=== PATIENT | female | born 1980 | race Caucasian/White ===

== ENCOUNTER → 2017-02-23 | Outpatient (CLI) | payer BC ==
[~2017-02-23] MED LIST: CIPR500T4 OR; COGENTIN PO; RISP2TAB12 OR; RISPERDAL PO
--- NOTE | 2017-02-23 13:10 | REP ---
Clinical: Hypertension . Comparison: 02/26/2013 . Technique: PA and lateral. Findings: The mediastinum and cardiac silhouette are normal. The lung alexander are clear and without acute consolidation, effusion, or pneumothorax. The skeletal structures are intact and normal. Impression: 1. No acute cardiopulmonary process. Signed by Elkin Lebron MD 02/23/2017 01:01 P
[2017-02-23 13:30] LABS: MEAN CORPUSCULAR HEMOGLOBIN 22.2 pg (27.0-33.0); MEAN CORPUSCULAR VOLUME 73.9 fl (80.0-96.0); RED CELL DISTRIBUTION WIDTH 16.1 % (11.5-14.5); WHITE BLOOD COUNT 5.5 K/mm3 (4.0-10.0)
[2017-02-23 13:58] LABS: VITAMIN B12 LEVEL > 2000 PG/ML (247-911)
[2017-02-23 14:06] LABS: ALBUMIN 3.6 GM/DL (3.2-5.2); ALKALINE PHOSPHATASE 53 U/L (45-117); ALT/SGPT 19 U/L (12-78); ANION GAP 7 MEQ/L (8-16); AST/SGOT 11 U/L (15-37); BILIRUBIN,TOTAL 0.5 MG/DL (0.2-1.0); BLOOD UREA NITROGEN 9 MG/DL (7-18); CALCIUM LEVEL 9.1 MG/DL (8.5-10.1); CARBON DIOXIDE LEVEL 27 MEQ/L (21-32); CHLORIDE LEVEL 105 MEQ/L (98-107); CHOLESTEROL LEVEL 190 MG/DL (<200); CREATININE FOR GFR 0.66 MG/DL (0.55-1.02); GLOMERULAR FILTRATION RATE > 60.0 (>60); GLUCOSE, FASTING 85 MG/DL (70-105); PERCENT SATURATION 6.1 % (13.2-37.4); POTASSIUM SERUM 4.2 MEQ/L (3.5-5.1); SODIUM LEVEL 139 MEQ/L (136-145); TOTAL IRON BINDING CAPACITY 475 UG/DL (250-450); TOTAL PROTEIN 7.6 GM/DL (6.4-8.2); TRIGLYCERIDES LEVEL 101 MG/DL (<150)
--- NOTE | 2017-02-23 14:47 | ECGEPIP ---
Stationary ECG Study [facility] Test Date: 2017-02-23 Pat Name: MICHELLE STARKEY Department: Room: - Gender: F P[place] Gluer: : 1980 Requested By: Latasha Pinto Order Number: [id number] Reading MD: Justo Gillespie Measurements Intervals [place] Rate: 71 P: 53 WV: 155 QRS: 15 QRSD: 97 T: 42 QT: 392 QTc: 426 Interpretive Statements SINUS RHYTHM Normal Electronically Signed On 02-23-2017 14:46:51 EDT by Justo Gillespie
== END ==
LOC: M LAB 12:31
PROVIDERS: ATTEND Family Medicine
DX: R53.83 Other fatigue (principal); I10 Essential (primary) hypertension

== ENCOUNTER → 2018-06-06 | Outpatient (CLI) | payer BC ==
[2018-06-06 12:17] LABS: HEMATOCRIT 40.1 % (36.0-47.0); HEMOGLOBIN 12.9 g/dl (12.0-15.5); MEAN CORPUSCULAR HGB CONC 32.2 g/dl (32.0-36.5); MEAN CORPUSCULAR VOLUME 83.9 fl (80.0-96.0); PLATELET COUNT, AUTOMATED 286 10^3/uL (150-450); RED BLOOD COUNT 4.78 10^6/uL (4.00-5.40); RED CELL DISTRIBUTION WIDTH 15.5 % (11.5-14.5); WHITE BLOOD COUNT 7.7 10^3/uL (4.0-10.0)
[2018-06-06 13:07] LABS: ALBUMIN 3.5 GM/DL (3.2-5.2); ALBUMIN/GLOBULIN RATIO 0.97 (1.00-1.93); ALKALINE PHOSPHATASE 48 U/L (45-117); ALT/SGPT 18 U/L (12-78); ANION GAP 10 MEQ/L (8-16); AST/SGOT 11 U/L (7-37); BILIRUBIN,TOTAL 0.4 MG/DL (0.2-1.0); BLOOD UREA NITROGEN 11 MG/DL (7-18); CALCIUM LEVEL 9.3 MG/DL (8.5-10.1); CARBON DIOXIDE LEVEL 26 MEQ/L (21-32); CHLORIDE LEVEL 105 MEQ/L (98-107); CHOLESTEROL LEVEL 182 MG/DL (<200); CHOLESTEROL RISK RATIO 4.918 (<5); CREATININE FOR GFR 0.58 MG/DL (0.55-1.30); GLOMERULAR FILTRATION RATE > 60.0 (>60); GLUCOSE, FASTING 83 MG/DL (70-100); HDL CHOLESTEROL 37 MG/DL (>40); IRON (FE) 38 UG/DL (50-170); NON-HDL-C 145 MG/DL; PERCENT SATURATION 10.1 % (13.2-45.0); POTASSIUM SERUM 4.5 MEQ/L (3.5-5.1); SODIUM LEVEL 141 MEQ/L (136-145); THYROID STIMULATING HORMONE 0.835 uIU/ML (0.358-3.740); TOTAL IRON BINDING CAPACITY 376 UG/DL (250-450); TOTAL PROTEIN 7.1 GM/DL (6.4-8.2); TRIGLYCERIDES LEVEL 115 MG/DL (<150)
[2018-06-06 13:15] LABS: TOTAL 25(OH) VITAMIN D 35.4 NG/ML (30.0-100.0)
[2018-06-06 16:06] LABS: ESTIMATED AVERAGE GLUCOSE 114 MG/DL (60-110); HEMOGLOBIN A1c 5.6 %
== END ==
LOC: M WUC 10:01
DX: I10 Essential (primary) hypertension (principal)
CPT/HCPCS: 83550

== ENCOUNTER → 2019-03-06 | Outpatient (CLI) | payer BC ==
[2019-03-06 17:19] LABS: ALBUMIN 3.7 GM/DL (3.2-5.2); ALT/SGPT 28 U/L (12-78); BILIRUBIN,TOTAL 0.4 MG/DL (0.2-1.0); BLOOD UREA NITROGEN 8 MG/DL (7-18); CALCIUM LEVEL 9.6 MG/DL (8.5-10.1); CARBON DIOXIDE LEVEL 28 MEQ/L (21-32); CHLORIDE LEVEL 103 MEQ/L (98-107); CHOLESTEROL LEVEL 211 MG/DL (<200); CHOLESTEROL RISK RATIO 5.861 (<5); CREATININE FOR GFR 0.64 MG/DL (0.55-1.30); GLOMERULAR FILTRATION RATE > 60.0 (>60); GLUCOSE, FASTING 90 MG/DL (70-100); HDL CHOLESTEROL 36 MG/DL (>40); LDL CHOLESTEROL 143 MG/DL (<100); NON-HDL-C 175 MG/DL; POTASSIUM SERUM 4.3 MEQ/L (3.5-5.1); SODIUM LEVEL 139 MEQ/L (136-145); TOTAL PROTEIN 7.4 GM/DL (6.4-8.2); TRIGLYCERIDES LEVEL 162 MG/DL (<150)
[2019-03-06 17:20] LABS: TOTAL 25(OH) VITAMIN D 32.6 NG/ML (30.0-100.0)
[2019-03-06 17:24] LABS: HEMOGLOBIN 13.6 g/dl (12.0-15.5); MEAN CORPUSCULAR HEMOGLOBIN 28.8 pg (27.0-33.0); MEAN CORPUSCULAR HGB CONC 32.4 g/dl (32.0-36.5); MEAN CORPUSCULAR VOLUME 88.8 fl (80.0-96.0); PLATELET COUNT, AUTOMATED 264 10^3/uL (150-450); RED BLOOD COUNT 4.73 10^6/uL (4.00-5.40); WHITE BLOOD COUNT 7.2 10^3/uL (4.0-10.0)
[2019-03-06 17:39] LABS: HEMOGLOBIN A1c 5.8 %
== END ==
LOC: M WUC 10:50
PROVIDERS: ATTEND Family Medicine
DX: I10 Essential (primary) hypertension (principal); R53.83 Other fatigue; E03.9 Hypothyroidism, unspecified

== ENCOUNTER 2019-10-09 19:19 | Inpatient (IN) | payer BC ==
[~2019-10-09] VITALS: Ht 167.6 cm; Wt 98.7 kg
[2019-10-09 20:05] LABS: BASO # 0.1 10^3/uL (0.0-0.2); BASO % 0.6 % (0.0-1.0); EOS # 0.2 10^3/uL (0.0-0.5); EOS % 1.6 % (0.0-3.0); HEMATOCRIT 50.3 % (36.0-47.0); HEMOGLOBIN 16.8 g/dl (12.0-15.5); LYMPH # 2.2 10^3/uL (1.5-5.0); MEAN CORPUSCULAR HEMOGLOBIN 30.4 pg (27.0-33.0); MEAN CORPUSCULAR HGB CONC 33.4 g/dl (32.0-36.5); MEAN CORPUSCULAR VOLUME 91.1 fl (80.0-96.0); MONO # 0.5 10^3/uL (0.0-0.8); NEUTROPHILS # 7.5 10^3/uL (1.5-8.5); NEUTROPHILS % 71.4 % (36.0-66.0); PLATELET COUNT, AUTOMATED 365 10^3/uL (150-450); RED BLOOD COUNT 5.52 10^6/uL (4.00-5.40); WHITE BLOOD COUNT 10.5 10^3/uL (4.0-10.0)
[2019-10-09] MEDS ORDERED: METF500T13 (20:05)
[2019-10-09] MEDS ORDERED: CAPT1TAB17 (20:05)
[2019-10-09 20:24] LABS: BLOOD UREA NITROGEN 10 MG/DL (7-18); CALCIUM LEVEL 9.6 MG/DL (8.5-10.1); CARBON DIOXIDE LEVEL 25 MEQ/L (21-32); CHLORIDE LEVEL 103 MEQ/L (98-107); CK-MB VALUE MASS 2.6 NG/ML (<3.6); CPK CREATINE PHOSPHOKINASE 113 U/L (26-192); CREATININE FOR GFR 0.75 MG/DL (0.55-1.30); GLOMERULAR FILTRATION RATE > 60.0 (>60); GLUCOSE, FASTING 139 MG/DL (70-100); POTASSIUM SERUM 4.2 MEQ/L (3.5-5.1); SODIUM LEVEL 137 MEQ/L (136-145); TROPONIN I < 0.02 NG/ML (< 0.10)
[2019-10-09] MEDS ORDERED: ONDANSETRON 4MG/2ML VIAL (J2405) IV ONE (21:00)
[2019-10-09] MEDS: MORPHINE 4 MG/ML 1ML VIAL/SYRINGE (J2270) IV PRN ×2 (21:02→22:20)
[2019-10-09 21:06] LABS: ALBUMIN 3.8 GM/DL (3.2-5.2); ALT/SGPT 19 U/L (12-78); BILIRUBIN,DIRECT < 0.1 MG/DL (0.0-0.2); BILIRUBIN,TOTAL 0.3 MG/DL (0.2-1.0); LIPASE 519 U/L (73-393); TOTAL PROTEIN 7.8 GM/DL (6.4-8.2)
[2019-10-09] MEDS ORDERED: GASTROGRAFIN SOLUTION 30ML (Q9963) As Ordered ONE (21:33)
[2019-10-09] MEDS: GASTROGRAFIN SOLUTION 30ML PO SCH (22:14)
[2019-10-09] MEDS ORDERED: NS 1,000 ML IV ONE (22:30)
[2019-10-09] MEDS ORDERED: HYDROMORPHONE HCL 0.5 MG/ 0.5 ML SYRINGE (J1170 PER 1) IV PRN (22:45)
[2019-10-09] MEDS ORDERED: ISOVUE-370 76% 100ML VIAL (Q9967) As Ordered ONE (22:47)
--- NOTE | 2019-10-09 23:54 | REPVR ---
PROCEDURE INFORMATION: Exam: CT Abdomen And Pelvis With Contrast Exam date and time: 10/09/2019 8:47 PM Age: 38 years old Clinical indication: Abdominal pain; Epigastric; Additional info: Epigastric abd pain, HX gastric bypass TECHNIQUE: Imaging protocol: Computed tomography of the abdomen and pelvis with intravenous contrast. Radiation optimization: All CT scans at this facility use at least one of these dose optimization techniques: automated exposure control; mA and/or kV adjustment per patient size (includes targeted exams where dose is matched to clinical indication); or iterative reconstruction. Contrast material: ISO; Contrast volume: 100 ml; Contrast route: AC; Other contrast: Route: Oral, Material: ggraphin, Volume: 600; COMPARISON: No relevant prior studies available. FINDINGS: Lungs: Minimal left lower lobe dependent atelectasis. Liver: The liver at mid clavicular line measures 17.5 cm. The liver attenuation is 72 Hounsfield units and the spleen is 109 Hounsfield units. Gallbladder and bile ducts: Normal. No calcified stones. No ductal dilation. Pancreas: Normal. No ductal dilation. Spleen: Normal. No splenomegaly. Adrenals: Normal. No mass. Kidneys and ureters: Normal. No hydronephrosis. Stomach and bowel: There has been gastric bypass with minimal fluid in the bypassed stomach. There is contrast in the gastric pouch and proximal small bowel with no leak of administered contrast. No colonic diverticulosis. Appendix: A normal appendix is seen. Intraperitoneal space: Free air in the abdomen. Mild free fluid. Vasculature: Incidental note of an accessory retroaortic left renal vein. Lymph nodes: Unremarkable. No enlarged lymph nodes. Bladder: Unremarkable as visualized. Reproductive: The uterus measures 8.4 cm in its AP dimension. Bones/joints: Unremarkable. No acute fracture. Soft tissues: Unremarkable. IMPRESSION: 1. Free air in the abdomen consistent with perforated viscus. The source is not specifically identified although most of the gas is in the left upper quadrant. No colonic diverticulosis. 2. Mild free fluid about the abdomen and pelvis. 3. Enlarged uterus which may reflect leiomyomatous change. 4. Mild hepatomegaly with mild fatty infiltration. Electronically signed by: Garrett Mann On 10/09/2019 23:53:38 PM
[2019-10-10] VITALS (8 sets, daily range): BP systolic 102–123; BP diastolic 56–73
[2019-10-10] MEDS ORDERED: IMIPENEM/CILASTATIN 500 MG in D5W MINI-BAG PLUS 100 ML IV ONE (00:15)
[2019-10-10] MEDS ORDERED: VITMTA PO (00:32)
[2019-10-10] MEDS ORDERED: METF500T13 PO (00:32)
[2019-10-10] MEDS ORDERED: ASPI-161 PO (00:32)
[2019-10-10] MEDS ORDERED: CAPT1TAB17 PO (00:32)
[2019-10-10] MEDS ORDERED: fentaNYL 250 MCG/5 ML INJECTION (J3010) As Ordered ONE (00:48)
[2019-10-10] MEDS ORDERED: MIDAZOLAM INJ 2 MG/2 ML VIAL (J2250) As Ordered ONE (00:48)
[2019-10-10] MEDS ORDERED: propofoL 200 MG/20 ML VIAL As Ordered ONE (00:48)
[2019-10-10] MEDS ORDERED: LIDOCAINE 2% INJ 100 MG/5 ML SDV (FOR ANES.) As Ordered ONE (00:48)
[2019-10-10] MEDS ORDERED: ROCURONIUM BROMIDE 50 MG/5 ML VIAL As Ordered ONE ×2 (00:49→02:24)
[2019-10-10] MEDS ORDERED: ONDANSETRON 4MG/2ML VIAL (J2405) As Ordered ONE (00:49)
[2019-10-10] MEDS ORDERED: dexameTHASONE 4 MG/ML 1ML VIAL (J1100) As Ordered ONE (00:49)
[2019-10-10] MEDS ORDERED: BUPIVACAINE LIPOSOME/PF 1.3% 20ML VIAL (13.3MG/ML)(EXPAREL)(C9290 PER1MG) As Ordered ONE (00:56)
[2019-10-10] MEDS ORDERED: LIDOCAINE 1% SDV INJ 30 ML VIAL As Ordered ONE (00:56)
[2019-10-10] MEDS ORDERED: BUPIVACAINE HCL 0.25% 30 ML VIAL As Ordered ONE (00:56)
[2019-10-10] MEDS ORDERED: BUPIVACAINE HCL 0.25% 10 ML VIAL As Ordered ONE (00:56)
[2019-10-10] MEDS ORDERED: DESFLURANE 240 ML INHALANT As Ordered ONE (01:00)
--- NOTE | 2019-10-10 01:21 | HPEPDOC ---
General Surgery H&P Date of Admission Oct 10, 2019 Attending Physician: YVON LEWIS MD History and Physical CHIEF COMPLAINT: epigastric abdominal pain HISTORY OF PRESENT ILLNESS: Patient is a 38-year-old female who has a prior history of laparoscopic gastric bypass done in 2014 was in her usual state of health up until about one hour prior to presentation. Earlier during the day patient was reporting some vague right upper quadrant and epigastric discomfort. She 8 the piece of apple and she suddenly had some severe epigastric pain, cold sweats which she initially thought was her dumping from her gastric bypass but the pain progressed and radiation to her mid chest and left shoulder with accompanying shortness of breath and diaphoresis. She was brought to the emergency room at roughly about 7 PM and evaluated there was found to have evidence for perforated viscus with evidence for pneumoperitoneum. This patient reports she was in her usual state of health. No fevers or chills reported. Patient does take regular aspirin. She smokes one half pack per day. She does not normally take any NSAIDs. She has no prior history of ulcers. ALLERGIES: Please see below. HOME MEDICATIONS: Please see below. PAST MEDICAL HISTORY: 1. history of morbid obesity s/p gastric bypass 2. diabetes. PAST SURGICAL HISTORY: 1. laparoscopic gastric bypass (2014) 2. laparaoscopic fibromyectomy. PERSONAL/SOCIAL HISTORY: reports smoking 1/2ppd, denies alcohol or drug use. REVIEW OF SYSTEMS: GENERAL: Denies chills, fatigue, fever, weight gain and weight loss. HEENT: Denies blurred vision and double vision. Denies ear symptoms. Denies hoarseness. NECK: Denies any neck pain. CARDIOVASCULAR: Patient reporting some chest pain radiation from the epigastric discomfort. MUSCULOSKELETAL: Denies arthralgias, back pain and thrombophlebitis. SKIN: Denies rash. NEUROLOGIC: Denies headache, stroke and transient ischemic attack. PSYCHIATRIC: Denies anxiety and depression. ENDOCRINE: Denies thyroid disease. HEMATOLOGY/ONCOLOGY: Denies any bleeding or clotting disorder. PULMONARY: Denies chronic cough, dyspnea and wheezing. GASTROINTESTINAL: s/p gastric bypass, occasional dumping GENITOURINARY: Denies dysuria, frequency, hematuria and nocturia. ENDOCRINE: Denies polydipsia, polyphagia, polyuria, heat or cold intolerance. INFECTIOUS: Denies any recent upper respiratory tract infection, UTI, need for use of antibiotics. NUTRITION: Reports good appetite. PHYSICAL EXAMINATION: VITAL SIGNS: Please see below. GENERAL APPEARANCE: Patient seen laying on the stretcher, slightly anxious but otherwise only minimally uncomfortable when she is laying flat, more uncomfortable when she moves around. Awake, alert, oriented. HEENT: Normocephalic, atraumatic. [place] palpebral conjunctivae. Anicteric sclerae. Lips dry. CHEST: No chest wall abnormalities. Normal respiratory motion/effort. NECK: Supple. No thyromegaly. No lymphadenopathies. LUNGS: Lung sounds are clear to auscultation bilaterally. No wheezing a ppreciated. HEART: No chest wall abnormalities. Heart rate and rhythm are regular with no murmurs. ABDOMEN: Is mildly obese abdomen, prominent upper abdominal mild distention and tympany. She is mostly tender at the epigastric area with some mild guarding. She is nontender in the lower abdomen. She has evidence for prior port sites from her laparoscopic surgeries. They did not see any evidence of incisional hernia, umbilical hernia or groin hernias. SKIN: Warm and dry. EXTREMITIES: Extremities have no deformities. No edema identified. NEUROLOGICAL: Awake, alert, oriented . ANCILLARIES: . LABORATORY DATA: Please see below. MICROBIOLOGY: Please see below. IMAGING: CT abdomen and pelvis 1. Free air in the abdomen consistent with perforated viscus. The source is not specifically identified although most of the gas is in the left upper quadrant. No colonic diverticulosis. 2. Mild free fluid about the abdomen and pelvis. 3. Enlarged uterus which may reflect leiomyomatous change. 4. Mild hepatomegaly with mild fatty infiltration. IMPRESSION AND PLAN: Patient has pneumoperitoneum consistent with signs of perforated viscus. From her history with sudden onset of epigastric discomfort and prior history of gastric bypass, I suspect probably a perforated gastrojejunal ulcer. Risk factors include her smoking and intake of aspirin. She is hemodynamically stable not showing signs of any severe sepsis. Peritoneal irritation mostly located on the upper abdomen on examination. She was advised of the findings and my clinical suspicion of perforated ulcer and placed need to proceed to the operating room. He will start with laparoscopy. I plan to use the da Blastbeat robot system to perform the surgery which would allow for easier application of sutures for possible repair of the perforated ulcer. She was also advised possibility of need to convert to a regular midline incision for an open surgery if it turns out this is more complicated than what is anticipated. She most lik diogenes will be admitted in the hospital after the surgery for continuation of antibiotics and continued monitoring. She has been given a dose of Primaxin in the emergency room. She has some mild penicillin allergy. her questions and concerns were addressed and consent was obtained from the patient. Vital Signs Vital Signs Date Time Temp Pulse Resp B/P (MAP) Pulse Ox O2 Delivery O2 Flow Rate FiO2 10/09/19 23:30 86 171/92 (118) 94 10/09/19 23:16 18 10/09/19 22:20 Room Air 10/09/19 19:20 96.3 Laboratory Data Labs 24H Laboratory Tests 2 10/09/19 19:33: Immature Granulocyte % (Auto) 0.4, Neutrophils (%) (Auto) 71.4H, Lymphocytes (%) (Auto) 21.0L, Monocytes (%) (Auto) 5.0, Eosinophils (%) (Auto) 1.6, Basophils (%) (Auto) 0.6, Neutrophils # (Auto) 7.5, Lymphocytes # (Auto) 2.2, Monocytes # (Auto) 0.5, Eosinophils # (Auto) 0.2, Basophils # (Auto) 0.1, Nucleated Red Bl ood Cells % (auto) 0.0, Anion Gap 9, Glomerular Filtration Rate > 60.0, Calcium Level 9.6, Total Bilirubin 0.3, Direct Bilirubin < 0.1, Aspartate Amino Transf (AST/SGOT) 17, Alanine Aminotransferase (ALT/SGPT) 19, Alkaline Phosphatase 58, Total Creatine Kinase 113, Creatine Kinase MB 2.6, Creatine Kinase MB Relative Index 2.30, Troponin I < 0.02, Total Protein 7.8, Albumin 3.8, Albumin/Globulin Ratio 0.95L, Lipase 519H CBC/BMP Laboratory Tests 10/09/19 19:33 Microbiology Microbiology 10/10/19 Blood Culture, Received Pending 10/10/19 Blood Culture, Received Pending Home Medications Scheduled Aspirin (Aspirin EC) 81 Mg Tablet.dr, 81 MG PO QHS, (Reported) Captopril (Captopril) 25 Mg Tablet, 25 MG PO BID, (Reported) Metformin HCl (Metformin HCl) 500 Mg Tablet, 500 MG PO QHS, (Reported) Multivitamins (Thera M Plus Tablet) 1 Each Tablet, 1 TAB PO DAILY, (Reported) Allergies Coded Allergies: Penicillins (Verified Allergy, Intermediate, hives, 10/09/19) A-FIB/CHADSVASC A-FIB History Current/History of A-Fib/PAF?: No Current PO Anticoag Therapy: YVON Ramirez MD Oct 10, 2019 01:21
[2019-10-10] MEDS ORDERED: SUCCINYLCHOLINE 100 MG/5 ML SYRINGE (J0330) As Ordered ONE (02:03)
[2019-10-10] MEDS ORDERED: ACETAMINOPHEN 1000MG 100ML IV BTL (OFIRMEV) (J0131 PER 10MG) As Ordered ONE (02:54)
[2019-10-10] MEDS ORDERED: SUGAMMADEX SODIUM 500 MG/5 ML VIAL (BRIDION) As Ordered ONE (02:54)
[2019-10-10] MEDS ORDERED: ONDANSETRON 4MG/2ML VIAL (J2405) IV PRN ×2 (03:30→04:00)
[2019-10-10] MEDS ORDERED: fentaNYL 100 MCG/2 ML INJECTION (J3010) IV PRN (03:30)
[2019-10-10] MEDS ORDERED: LR 1,000 ML IV SCH (03:30)
[2019-10-10] MEDS ORDERED: MORPHINE 2 MG/ML 1ML VIAL (J2270) IV PRN (03:30)
[2019-10-10] MEDS ORDERED: oxyCODONE 5MG TAB PO PRN (03:30)
[2019-10-10] MEDS ORDERED: MORPHINE 4 MG/ML 1ML VIAL/SYRINGE (J2270) IV PRN (03:45)
[2019-10-10] MEDS ORDERED: PERCOCET 5MG/325MG TAB PO PRN (03:45)
[2019-10-10] MEDS: LR 1,000 ML IV SCH ×3 (04:48→22:50)
[2019-10-10] MEDS: PANTOPRAZOLE 40MG INJ (PROTONIX) (C9113) IV SCH ×2 (05:59→18:01)
[2019-10-10] MEDS: IMIPENEM/CILASTATIN 500 MG in D5W MINI-BAG PLUS 100 ML IV SCH ×3 (05:59→18:01)
--- NOTE | 2019-10-10 06:24 | ECGEPIP ---
[facility] - ED Test Date: 2019-10-09 Pat Name: MICHELLE STARKEY Department: Room: - Gender: Female Courier: reina : 1980 Requested By: FLORINDA Morrison Order Number: [id number] Reading MD: Kamron Gray Measurements Intervals [place] Rate: 78 P: 25 MD: 135 QRS: -28 QRSD: 94 T: 44 QT: 379 QTc: 433 Interpretive Statements SINUS RHYTHM POSSIBLE LEFT ATRIAL ENLARGEMENT BORDERLINE LEFT AXIS DEVIATION SIMILAR TO 02/23/17 Electronically Signed on 10-10-2019 6:24:13 EST by Kamron Gray
--- NOTE | 2019-10-10 08:50 | ROOPDOC ---
[facility] Report Of Operation Report of Operation DATE OF PROCEDURE: 10/10/19 PREPROCEDURE DIAGNOSES: Perforated viscus, pneumoperitoneum, gastric bypass status. POSTPROCEDURE DIAGNOSES: Perforated gastrojejunal ulcer. PROCEDURE: Robotic-assisted laparoscopic omental patch repair of acutely perforated gastrojejunal ulcer, washout of the abdomen, bilateral transabdominal preperitoneal plane block using Exparel and 1/4% Marcaine. SURGEON: Kwan Salazar MD BRAND ACTIVATION MANAGER: ANESTHESIA: Gen. anesthesia. ESTIMATED BLOOD LOSS: Approximately 10 mL. COMPLICATIONS: None. REMARKS:. 38 -year-old female who had laparoscopic gastric bypass performed in 2014 presented to the emergency room with sudden onset of epigastric pain radiating to her chest and left shoulder and was found to have evidence for perforated viscus. She smokes one half packs per day and takes 81 mg aspirin is her main risk for ulcer formation. PROCEDURE NOTE: Patient found to have moderate amount of greenish succus fluid in the upper abdomen especially around the liver and spleen. Roughly 4 mm perforation at the jejunal side of the gastrojejunal ulcer is noted with some thickening of the underlying intestinal wall consistent with underlying ulcer at the area surrounded with fibrin at the area and active leakage of gastric contents/ ?contrast. She has associated ileus. The jejunal jejunal anastomosis is visualized and noted healthy and she appears to have an antecolic bypass limb. I healthy patch of omentum was placed and secured at the perforation site and abdomen was washed out with saline and a 19 David drain was left in place DRAINS: 19 David drain. SPECIMENS: Gram stain and culture of the abdominal fluid DESCRIPTION OF PROCEDURE: Patient received 500 mg of meropenem IV during her stay in the emergency room. She was brought up to the OR from the ER. Placed supine on the table. Compression boots placed on both lower extremities for DVT prophylaxis general endotracheal anesthesia started. A Fontanez catheter was placed for urine output monitoring. Her abdomen was then prepped and draped widely.We paused for a surgical timeout using both pre-incision safety checklist to verify correct patient, procedure site and additional clinical information prior to beginning the procedure I entered abdomen through an incision roughly about 3-4 cm above her umbilicus. The subcutaneous tissue was dissected bluntly a Veress needle was inserted in a controlled fashion. Proper placement confirmed with saline drop technique. CO2 insufflation and started to pressure of 15 mmHg. Using the same incision an 8 mm robotic trocar was placed under direct vision of a laparoscope. Insertion site was inspected for injury and none was found. She was positioned in reverse Trendelenburg to allow for the small bowel was dropped down. On initial diagnostic laparoscopy there were some greenish succus fluid around the liver also at the left upper quadrant area. Most of the inflammation, fibrin deposition is noted at the medial left edge of the liver. Under direct vision an 8 mm robotic trocar was placed in the patient's left upper quadrant area as well as the right upper quadrant area along the same line of the initial trocar. A small amount of the greenish peritoneal fluid was sent for microbiology. I started bluntly dissected around the fibrin deposited along the major lower edge of the liver and visualized in the small opening at the small bowel portion of the gastrojejunostomy at the medial side of the curvature of the jejunal limb. There was some whitish fluid actively draining from their possibly the contrast that she drank for the CT. The da Carli robot tower was maneuvered in place along the patient's right side. The trochars were docked. I primarily used the scissors connected to monopolar cautery on my right hand and forced bipolar forceps elected to bipolar cautery on my left hand. The scissors were exchanged for the needle tanker driver for the suturing. A 5 mm port was placed between the umbilical and left sided abdominal port for my assistant professor of geography. I unscribed and to control of the instruments and camera at the surgeon's console. I started by initially suction irrigating the visible fluid contents around the liver at the left upper quadrant area and underneath the liver edge as a bluntly dissected the fibrinous inflammatory deposition at the liver to further expose the gastrojejunal limb of the gastric bypass. She has an antecolic limb and I followed this to the jejunojejunostomy which appears healthy and bowels are mildly distended uniformly consistent with ileus. Try to visualize at the right lower quadrant and left lower quadrant area as much as I can with what I could see there is no visible pathology. There is readily available healthy omentum at the patient's left upper quadrant area and this can easily be transposed on top of the perforation. I used 3 separate pieces of 3-0 silk sutures and placed at vertically along t he line of the jejunum at its perforation with the middle suture coming through the small perforation opening. The omentum was laid on top of this sutures and there were tied off. I used about 3 more separate sutures to tie down on the lower edge of the omental patch daily in place. I vigorously irrigated at the area checking for further leakage. Once I satisfied I continued irrigating at the whole of the abdomen and aspirating as much like an. I then came back into the operative field switched to a laparoscope in place in 19 David drain through the lateral port site and placed this inferior to the omental patch as well as underneath the liver. After further visualization and no other pathology that I could note and no undrained or separate abscess collection found, the abdomen was deflated, all ports were removed. The drain was secured in place with 2-0 silk the 8 mm port site skin incisions were closed with 4-0 Monocryl in subcuticular fashion. Dermabond dressing was then used for coverage. Patient was then promptly awakened, extubated and brought to the recovery room in stable condition. KWAN SALAZAR MD Oct 10, 2019 08:50
[2019-10-10] MEDS: MULTIVITAMINS/MINERALS THERAP 1 TAB PO SCH (08:59)
[2019-10-10] MEDS: SUCRALFATE 1 GM TAB PO SCH ×3 (09:00→21:11)
[2019-10-10] MEDS: PERCOCET 5MG/325MG TAB PO PRN ×3 (11:17→22:51)
--- NOTE | 2019-10-10 11:20 | REP ---
Clinical: Chest pain . Comparison: 02/23/2017 . Findings: The mediastinum and cardiac silhouette are stable and within normal limits for portable technique. The lung alexander are clear without acute consolidation, effusion, or pneumothorax. Skeletal structures are intact. Impression: No acute cardiopulmonary process appreciated. Electronically Signed by Elkin Lebron MD 10/10/2019 05:06 A
--- NOTE | 2019-10-10 14:29 | IPNPDOC ---
Subjective General Date/Time Seen The patient was seen on 10/10/19 at 13:38. Subject Chief Complaint/History The patient is a 38-year-old female admitted with a reason for visit of Bowel Perforation. Patient had laparoscopic omental patch repair performed for perforated gastrojejunal ulcer early this morning. She feels much better. She has been ambulating always. She denies any significant pain, nausea. She has been afebrile postop. Current Medications Current Medications Current Medications Medications (Trade) Dose Ordered Sig/Penny Route PRN Reason Start Time Stop Time Status Last Admin Dose Admin Captopril (CAPOten) 25 mg BID PO 10/10/19 09:00 10/10/19 09:00 Diatrizoate Meglum/ Diatrizoate Sod (Gastrografin) 10 ml Q30M PO 10/09/19 21:30 10/09/19 22:07 DC 10/09/19 22:14 Fentanyl Citrate (Sublimaze) 25 mcg Q5MP PRN IV PAIN LEVEL 5-10 10/10/19 03:30 10/10/19 04:45 DC Home Med (Med Rec Complete!) ASDIRECTED XX 10/10/19 00:45 10/10/19 00:45 DC Hydromorphone HCl (Dilaudid) 0.5 mg Q30M PRN IV MODERATE PAIN (PS 5-7) 10/09/19 22:45 10/10/19 04:21 DC 10/09/19 22:41 Imipenem/ Cilastatin Sodium 500 mg/Dextrose 100 ml @ 100 mls/hr Q6H IV 10/10/19 06:00 10/10/19 11:19 Lactated Ringer's 1,000 ml @ 100 mls/hr Q10H IV 10/10/19 00:30 10/10/19 11:17 Lactated Ringer's 1,000 ml @ 100 mls/hr Q10H IV 10/10/19 03:30 10/10/19 04:45 DC Morphine Sulfate (Morphine Sulfate Inj) 2 mg Q5MP PRN IV PAIN LEVEL 4-7 10/10/19 03:30 10/10/19 04:45 DC Morphine Sulfate (Morphine Sulfate Inj) 4 mg Q30M PRN IV SEVERE PAIN (PS 8-10) 10/09/19 21:00 10/09/19 22:20 DC 10/09/19 22:20 Morphine Sulfate (Morphine Sulfate Inj) 4 mg Q4HP PRN IV SEVERE PAIN (PS 8-10) 10/10/19 03:45 Multivitamins (Theragram-M) 1 tab DAILY PO 10/10/19 09:00 10/10/19 08:59 Ondansetron HCl (ZOFRAN INJection) 4 mg Q4HP PRN IV NAUSEA OR VOMITING 10/10/19 03:30 10/10/19 04:45 DC Ondansetron HCl (ZOFRAN INJection) 4 mg Q6HP PRN IV NAUSEA OR VOMITING 10/10/19 04:00 Oxycodone HCl (Roxicodone, Oxyir) 5 mg ASDIRECTED PRN PO PAIN LEVEL 1-4 10/10/19 03:30 10/10/19 04:45 DC Oxycodone/ Acetaminophen (Percocet 5mg/ 325mg Tablet) 1 tab Q4HP PRN PO MILD/MODERATE PAIN (PS 1-7) 10/10/19 03:45 10/10/19 11:17 Oxycodone/ Acetaminophen (Percocet 5mg/ 325mg Tablet) 2 tab Q6HP PRN PO SEVERE PAIN (PS 8-10) 10/10/19 03:45 Pantoprazole Sodium (Protonix) 40 mg Q12H IV 10/10/19 06:00 10/10/19 05:59 Sucralfate (Carafate) 1 gm TID PO 10/10/19 09:00 10/10/19 09:00 Allergies Coded Allergies: Penicillins (Verified Allergy, Intermediate, hives, 10/09/19) Objective Physical Examination Examination GENERAL APPEARANCE: Patient looks very comfortable.. SKIN: Warm and dry. HEENT: Normocephalic, atraumatic. [place] palpebral conjunctiva, anicteric sclerae. Lips and mucosa appear mildly dry. NECK: Supple, no thyromegaly. No obvious jugular venous distention. LUNGS: Clear to auscultation bilaterally. No wheezing appreciated. HEART: No chest wall abnormalities. Regular rate and rhythm with no murmurs appreciated. ABDOMEN: Abdomen is obese, somewhat protuberant maybe more distended upper abd ominal portion. Laparoscopic port site incisions are intact. She has a David drain which is some cloudy thin fluid draining and it. EXTREMITIES: Extremities have no deformities. No edema identified. Vital Signs Vital Signs Date Time Temp Pulse Resp B/P (MAP) Pulse Ox O2 Delivery O2 Flow Rate FiO2 10/10/19 11:47 18 10/10/19 09:20 98.0 66 102/59 (73) 96 Nasal Cannula 2.0 I&Os I&O- Last 24 Hours up to 6 AM 10/10/19 05:59 Intake Total 1800 ml Output Total 1110 ml Balance 690 ml Laboratory Data Labs 24H Laboratory Tests 2 10/09/19 19:33: Immature Granulocyte % (Auto) 0.4, Neutrophils (%) (Auto) 71.4H, Lymphocytes (%) (Auto) 21.0L, Monocytes (%) (Auto) 5.0, Eosinophils (%) (Auto) 1.6, Basophils (%) (Auto) 0.6, Neutrophils # (Auto) 7.5, Lymphocytes # (Auto) 2.2, Monocytes # (Auto) 0.5, Eosinophils # (Auto) 0.2, Basophils # (Auto) 0.1, Nucleated Red Blood Cells % (auto) 0.0, Anion Gap 9, Glomerular Filtration Rate > 60.0, Calcium Level 9.6, Total Bilirubin 0.3, Direct Bilirubin < 0.1, Aspartate Amino Transf (AST/SGOT) 17, Alanine Aminotransferase (ALT/SGPT) 19, Alkaline Phosphatase 58, Total Creatine Kinase 113, Creatine Kinase MB 2.6, Creatine Kinase MB Relative Index 2.30, Troponin I < 0.02, Total Protein 7.8, Albumin 3.8, Albumin/Globulin Ratio 0.95L, Lipase 519H CBC/BMP Laboratory Tests 10/09/19 19:33 Microbiology Microbiology 10/10/19 Gram Stain, Received Pending 10/10/19 Wound Culture, Received Pending 10/10/19 Anaerobic Culture, Received Pending 10/10/19 Blood Culture, Received Pending 10/10/19 Blood Culture, Received Pending Impression Postop day 0 robotic-assisted laparoscopic omental patch repair of perforated gastrojejunal ulcer 3 years removed from laparoscopic Cherelle-en-Y gastric bypass Continue with Primaxin while awaiting culture results. BID IV Protonix as well as Carafate Continue with nothing by mouth with sips of water Ambulate to hallways If continues to do well will consider clear liquids tomorrow Plan / VTE VTE Prophylaxis Ordered?: Yes Plan / Urinary Catheter Urinary Catheter: D/C YVON Templeton MD Oct 10, 2019 14:29
[2019-10-11] MEDS: IMIPENEM/CILASTATIN 500 MG in D5W MINI-BAG PLUS 100 ML IV SCH ×4 (00:29→17:35)
[2019-10-11 02:00] VITALS: BP 104/60
[2019-10-11] MEDS: PERCOCET 5MG/325MG TAB PO PRN ×2 (05:37→20:05)
[2019-10-11] MEDS: PANTOPRAZOLE 40MG INJ (PROTONIX) (C9113) IV SCH ×2 (05:38→17:35)
[2019-10-11 06:00] VITALS: BP 131/68
[2019-10-11 06:01] LABS: BASO % 0.3 % (0.0-1.0); EOS # 0.1 10^3/uL (0.0-0.5); EOS % 1.4 % (0.0-3.0); HEMATOCRIT 38.6 % (36.0-47.0); LYMPH # 1.6 10^3/uL (1.5-5.0); LYMPH % 15.7 % (24.0-44.0); MEAN CORPUSCULAR HGB CONC 32.4 g/dl (32.0-36.5); MEAN CORPUSCULAR VOLUME 92.8 fl (80.0-96.0); MONO # 0.8 10^3/uL (0.0-0.8); MONO % 7.7 % (0.0-5.0); NEUTROPHILS # 7.6 10^3/uL (1.5-8.5); NEUTROPHILS % 74.5 % (36.0-66.0); PLATELET COUNT, AUTOMATED 198 10^3/uL (150-450); RED BLOOD COUNT 4.16 10^6/uL (4.00-5.40); WHITE BLOOD COUNT 10.2 10^3/uL (4.0-10.0)
[2019-10-11 06:04] LABS: HEMOGLOBIN 12.5 g/dl (12.0-15.5)
[2019-10-11 06:26] LABS: BLOOD UREA NITROGEN 7 MG/DL (7-18); CALCIUM LEVEL 8.8 MG/DL (8.5-10.1); CARBON DIOXIDE LEVEL 27 MEQ/L (21-32); CHLORIDE LEVEL 107 MEQ/L (98-107); CREATININE FOR GFR 0.58 MG/DL (0.55-1.30); GLOMERULAR FILTRATION RATE > 60.0 (>60); GLUCOSE, FASTING 79 MG/DL (70-100); POTASSIUM SERUM 3.7 MEQ/L (3.5-5.1); SODIUM LEVEL 140 MEQ/L (136-145)
[2019-10-11] MEDS: LR 1,000 ML IV SCH ×2 (06:30→16:30)
--- NOTE | 2019-10-11 08:16 | IPNPDOC ---
Subjective General Date/Time Seen The patient was seen on 10/11/19 at 08:14. Subject Chief Complaint/History The patient is a 38-year-old female admitted with a reason for visit of Bowel Perforation. Patient continues to do well, reports passing flatus, occasional epigastric discomfort, no nausea, bloating Current Medications Current Medications Current Medications Medications (Trade) Dose Ordered Sig/Penny Route PRN Reason Start Time Stop Time Status Last Admin Dose Admin Captopril (CAPOten) 25 mg BID PO 10/10/19 09:00 10/10/19 21:12 Diatrizoate Meglum/ Diatrizoate Sod (Gastrografin) 10 ml Q30M PO 10/09/19 21:30 10/09/19 22:07 DC 10/09/19 22:14 Enoxaparin Sodium (Lovenox) 40 mg DAILY SC 10/11/19 09:00 Fentanyl Citrate (Sublimaze) 25 mcg Q5MP PRN IV PAIN LEVEL 5-10 10/10/19 03:30 10/10/19 04:45 DC Home Med (Med Rec Complete!) ASDIRECTED XX 10/10/19 00:45 10/10/19 00:45 DC Hydromorphone HCl (Dilaudid) 0.5 mg Q30M PRN IV MODERATE PAIN (PS 5-7) 10/09/19 22:45 10/10/19 04:21 DC 10/09/19 22:41 Imipenem/ Cilastatin Sodium 500 mg/Dextrose 100 ml @ 100 mls/hr Q6H IV 10/10/19 06:00 10/11/19 05:38 Lactated Ringer's 1,000 ml @ 100 mls/hr Q10H IV 10/10/19 00:30 10/10/19 22:50 Lactated Ringer's 1,000 ml @ 100 mls/hr Q10H IV 10/10/19 03:30 10/10/19 04:45 DC Morphine Sulfate (Morphine Sulfate Inj) 2 mg Q5MP PRN IV PAIN LEVEL 4-7 10/10/19 03:30 10/10/19 04:45 DC Morphine Sulfate (Morphine Sulfate Inj) 4 mg Q30M PRN IV SEVERE PAIN (PS 8-10) 10/09/19 21:00 10/09/19 22:20 DC 10/09/19 22:20 Morphine Sulfate (Morphine Sulfate Inj) 4 mg Q4HP PRN IV SEVERE PAIN (PS 8-10) 10/10/19 03:45 Multivitamins (Theragram-M) 1 tab DAILY PO 10/10/19 09:00 10/10/19 08:59 Ondansetron HCl (ZOFRAN INJection) 4 mg Q4HP PRN IV NAUSEA OR VOMITING 10/10/19 03:30 10/10/19 04:45 DC Ondansetron HCl (ZOFRAN INJection) 4 mg Q6HP PRN IV NAUSEA OR VOMITING 10/10/19 04:00 Oxycodone HCl (Roxicodone, Oxyir) 5 mg ASDIRECTED PRN PO PAIN LEVEL 1-4 10/10/19 03:30 10/10/19 04:45 DC Oxycodone/ Acetaminophen (Percocet 5mg/ 325mg Tablet) 1 tab Q4HP PRN PO MILD/MODERATE PAIN (PS 1-7) 10/10/19 03:45 10/11/19 05:37 Oxycodone/ Acetaminophen (Percocet 5mg/ 325mg Tablet) 2 tab Q6HP PRN PO SEVERE PAIN (PS 8-10) 10/10/19 03:45 Pantoprazole Sodium (Protonix) 40 mg Q12H IV 10/10/19 06:00 10/11/19 05:38 Sucralfate (Carafate) 1 gm TID PO 10/10/19 09:00 10/10/19 21:11 Allergies Coded Allergies: Penicillins (Verified Allergy, Intermediate, hives, 10/09/19) Objective Physical Examination Examination GENERAL APPEARANCE:was sleeping, comfortable on waking up. SKIN: warm and dry. NECK: Supple, no thyromegaly. No obvious jugular venous distention. LUNGS: clear to ausculation bilaterally. HEART: regular heart rate and rhythm. ABDOMEN: Abdomen is soft, does not look overly distended. Lap port sites clean and dry, JORDIN drain still slightly murky pinkish serosanguenous fluid with decreasing amount being recorded. Mild tenderness epigastric area and at port and drain site EXTREMITIES: no edema. Vital Signs Vital Signs Date Time Temp Pulse Resp B/P (MAP) Pulse Ox O2 Delivery O2 Flow Rate FiO2 10/11/19 06:07 18 10/11/19 06:00 99.1 88 131/68 (89) 98 Room Air 10/10/19 09:20 2.0 I&Os I&O- Last 24 Hours up to 6 AM 10/11/19 05:59 Intake Total 2286 ml Output Total 1440 ml Balance 846 ml Laboratory Data Labs 24H Laboratory Tests 2 10/11/19 05:49: Immature Granulocyte % (Auto) 0.4, Neutrophils (%) (Auto) 74.5H, Lymphocytes (%) (Auto) 15.7L, Monocytes (%) (Auto) 7.7H, Eosinophils (%) (Auto) 1.4, Basophils (%) (Auto) 0.3, Neutrophils # (Auto) 7.6, Lymphocytes # (Auto) 1.6, Monocytes # (Auto) 0.8, Eosinophils # (Auto) 0.1, Basophils # (Auto) 0.0, Nucleated Red Blood Cells % (auto) 0.0, Anion Gap 6L, Glomerular Filtration Rate > 60.0, Calcium Level 8.8 CBC/BMP Laboratory Tests 10/11/19 05:49 Microbiology Microbiology 10/10/19 Gram Stain - Final, Resulted 10/10/19 Wound Culture, Resulted Pending 10/10/19 Anaerobic Culture, Resulted Pending 10/10/19 Blood Culture - Preliminary, Resulted No growth after 24 hours . All specim... 10/10/19 Blood Culture - Preliminary, Resulted No growth after 24 hours . All specim... Impression POD1 robotic assisted laparoscopic omental patch repair of acutely perforated gastrojejunal ulcer gastric bypass status continue IV abx continue IV protonix plus carafate clears, non carbonated drinks continue monitor drain output - starting to clear and decrease in character dvt prophylaxis - lovenox Plan / VTE VTE Prophylaxis Ordered?: Yes Plan / Urinary Catheter Urinary Catheter: D/C YVON Templeton MD Oct 11, 2019 08:16
[2019-10-11] MEDS: MULTIVITAMINS/MINERALS THERAP 1 TAB PO SCH (08:20)
[2019-10-11] MEDS: SUCRALFATE 1 GM TAB PO SCH ×3 (08:20→20:04)
[2019-10-11] MEDS: ENOXAPARIN 40 MG/0.4 ML SYRINGE (J1650) SC SCH (08:21)
[2019-10-11 14:58] VITALS: BP 116/67
[2019-10-11 22:00] VITALS: BP 117/67
[2019-10-12] MEDS: IMIPENEM/CILASTATIN 500 MG in D5W MINI-BAG PLUS 100 ML IV SCH ×4 (00:16→17:05)
[2019-10-12] MEDS: PERCOCET 5MG/325MG TAB PO PRN ×4 (00:18→22:18)
[2019-10-12] MEDS: LR 1,000 ML IV SCH (00:20)
[2019-10-12] MEDS: PANTOPRAZOLE 40MG INJ (PROTONIX) (C9113) IV SCH (05:20)
[2019-10-12 06:00] VITALS: BP_SYST 117; BP_DIAS 67; BP_DIAS 68
[2019-10-12 06:30] LABS: BASO # 0.1 10^3/uL (0.0-0.2); BASO % 0.5 % (0.0-1.0); EOS # 0.2 10^3/uL (0.0-0.5); EOS % 2.5 % (0.0-3.0); HEMATOCRIT 36.4 % (36.0-47.0); HEMOGLOBIN 12.1 g/dl (12.0-15.5); LYMPH # 1.5 10^3/uL (1.5-5.0); MEAN CORPUSCULAR HEMOGLOBIN 30.5 pg (27.0-33.0); MEAN CORPUSCULAR HGB CONC 33.2 g/dl (32.0-36.5); MEAN CORPUSCULAR VOLUME 91.7 fl (80.0-96.0); MONO # 0.7 10^3/uL (0.0-0.8); MONO % 7.5 % (0.0-5.0); NEUTROPHILS # 6.7 10^3/uL (1.5-8.5); NEUTROPHILS % 73.2 % (36.0-66.0); PLATELET COUNT, AUTOMATED 200 10^3/uL (150-450); RED BLOOD COUNT 3.97 10^6/uL (4.00-5.40); WHITE BLOOD COUNT 9.1 10^3/uL (4.0-10.0)
[2019-10-12 06:53] LABS: BLOOD UREA NITROGEN 4 MG/DL (7-18); CALCIUM LEVEL 8.6 MG/DL (8.5-10.1); CARBON DIOXIDE LEVEL 24 MEQ/L (21-32); CHLORIDE LEVEL 106 MEQ/L (98-107); CREATININE FOR GFR 0.54 MG/DL (0.55-1.30); GLOMERULAR FILTRATION RATE > 60.0 (>60); GLUCOSE, FASTING 85 MG/DL (70-100); LIPASE 52 U/L (73-393); POTASSIUM SERUM 3.4 MEQ/L (3.5-5.1); SODIUM LEVEL 138 MEQ/L (136-145)
[2019-10-12] MEDS: SUCRALFATE 1 GM TAB PO SCH ×3 (08:49→20:43)
[2019-10-12] MEDS: MULTIVITAMINS/MINERALS THERAP 1 TAB PO SCH (08:49)
[2019-10-12] MEDS: ENOXAPARIN 40 MG/0.4 ML SYRINGE (J1650) SC SCH (08:50)
[2019-10-12 14:00] VITALS: BP 122/73
--- NOTE | 2019-10-12 16:55 | IPN ---
DATE: 10/12/2019 HISTORY: The patient is now just about 2 days postoperative from a robotic-assisted laparoscopic patch closure of a perforated gastrojejunal ulcer. She is about 5 years out from her gastric bypass. The patient reports she is feeling pretty well with decreased pain. She has tolerated some clear liquids. Vital signs show that she has been to a maximal temperature of 99.8 last evening and afebrile today. Her pulse is in the 70s to mid 90s, and her blood pressure is good. Room air oxygen saturation is normal. Intake and output shows that yesterday she had 1570 in. She had several voids noted but not measured. She had 45 mL out from her drain yesterday and 40 this morning. PHYSICAL EXAMINATION: The patient is lying quietly on the hospital bed. She is alert and oriented. She appears fairly comfortable. Heart exam shows a regular rate and rhythm. The lungs are clear to auscultation. The abdomen is flat. She has bowel sounds present. There is no unexpected tenderness on palpation. She has several sealed trocar sites and a drain exiting the right midabdomen. There is a small amount of serous fluid in the drainage tubing with a little bit of particulate debris. Laboratory studies today show a white count of 9, hemoglobin of 12, hematocrit 36, and a differential count shows 73% neutrophils and 16% lymphocytes. Chemistry profile shows sodium of 138, potassium 3.4, chloride 106, CO2 of 24, BUN of 4, creatinine 0.5, and a glucose of 85. IMPRESSION: The patient is doing very well following her patch closure of a perforated ulcer. This was actually repaired in the facility examiner hours of October 10, so she is approaching 2 to 2-1/2 days postoperative. She reports that she has been up ambulating, and she is tolerating clear liquids well. PLAN: I will advance her to a full liquid diet. She is off any intravenous (IV) medications. I will convert Protonix to oral. I advised her that if she does well until tomorrow, I will consider taking out her drain and discharging her. I note that her abdominal culture has a yeastlike organism present, but she does not appear to require antifungal medications at this time, and we will monitor this only. TERESA
[2019-10-12] MEDS: PANTOPRAZOLE 40MG TAB (PROTONIX) PO SCH (20:43)
[2019-10-12 22:00] VITALS: BP 114/60
[2019-10-13] MEDS: IMIPENEM/CILASTATIN 500 MG in D5W MINI-BAG PLUS 100 ML IV SCH ×3 (00:06→12:16)
[2019-10-13] MEDS: PERCOCET 5MG/325MG TAB PO PRN (05:26)
[2019-10-13 05:55] LABS: BASO % 0.5 % (0.0-1.0); EOS # 0.3 10^3/uL (0.0-0.5); EOS % 3.6 % (0.0-3.0); HEMOGLOBIN 12.6 g/dl (12.0-15.5); LYMPH # 1.3 10^3/uL (1.5-5.0); LYMPH % 15.6 % (24.0-44.0); MEAN CORPUSCULAR HEMOGLOBIN 30.8 pg (27.0-33.0); MEAN CORPUSCULAR HGB CONC 34.1 g/dl (32.0-36.5); MEAN CORPUSCULAR VOLUME 90.5 fl (80.0-96.0); MONO # 0.6 10^3/uL (0.0-0.8); MONO % 7.4 % (0.0-5.0); NEUTROPHILS % 72.5 % (36.0-66.0); PLATELET COUNT, AUTOMATED 236 10^3/uL (150-450); RED BLOOD COUNT 4.09 10^6/uL (4.00-5.40); WHITE BLOOD COUNT 8.3 10^3/uL (4.0-10.0)
[2019-10-13 06:00] VITALS: BP 124/71
[2019-10-13 06:13] LABS: BLOOD UREA NITROGEN 4 MG/DL (7-18); CALCIUM LEVEL 8.9 MG/DL (8.5-10.1); CARBON DIOXIDE LEVEL 25 MEQ/L (21-32); CHLORIDE LEVEL 107 MEQ/L (98-107); CREATININE FOR GFR 0.51 MG/DL (0.55-1.30); GLOMERULAR FILTRATION RATE > 60.0 (>60); GLUCOSE, FASTING 88 MG/DL (70-100); POTASSIUM SERUM 3.6 MEQ/L (3.5-5.1); SODIUM LEVEL 139 MEQ/L (136-145)
[2019-10-13] MEDS: ENOXAPARIN 40 MG/0.4 ML SYRINGE (J1650) SC SCH (08:36)
[2019-10-13] MEDS: PANTOPRAZOLE 40MG TAB (PROTONIX) PO SCH (08:36)
[2019-10-13 08:37] VITALS: BP 124/71
[2019-10-13] MEDS: MULTIVITAMINS/MINERALS THERAP 1 TAB PO SCH (08:37)
[2019-10-13] MEDS: SUCRALFATE 1 GM TAB PO SCH (08:37)
[2019-10-13 14:00] VITALS: BP 122/72
[2019-10-13] MEDS ORDERED: METR-265 PO (15:38)
[2019-10-13] MEDS ORDERED: SUCR1TA PO (15:38)
[2019-10-13] MEDS ORDERED: PANT40TA3 PO (15:38)
[2019-10-13] MEDS ORDERED: CIPR500T3 PO (15:38)
--- NOTE | 2019-10-14 15:43 | IPN ---
DATE: 10/13/2019 HISTORY: The patient today is postoperative day number three from a robotic-assisted laparoscopic patch closure of a gastrojejunal anastomotic ulcer. She has been doing very well and has been on full liquids since yesterday. Vital signs show that she has been afebrile with a pulse generally in the 70s and a good blood pressure. Her room air oxygen saturations are normal. Intake and output show that yesterday she had 2900 in. She has multiple voids recorded. There was 40 mL in her drain yesterday. PHYSICAL EXAMINATION: The patient is sitting up in a chair when I went in to see her. She appears quite comfortable. She has had no nausea or vomiting. She has been taking no pain medications. She has been ambulating without difficulty. Physical examination shows that her heart examination is a regular rate and rhythm. The lungs are clear and the abdomen is flat. She has a drain exiting the right lateral trocar site with some minimal serous fluid in the tubing. LABORATORY STUDIES: Today show a white count of 8 with a differential showing 72% neutrophils, 16% lymphocytes and 7% monocytes. Chemistry profile is effectively normal. IMPRESSION: The patient is doing very well now three days postoperative from her repair of a perforated ulcer. Her white count is normal and she has shown no signs of active infection. PLAN: I removed the patient's drain and counseled her regarding care of the site. She will be discharged home today. She will be discharged home on Carafate four times daily before meals and at bedtime for a month and a prescription for Protonix 40 mg twice daily for the next three months. She should followup with Dr. Salazar in the office in the next 10-14 days. She should remain off work until she is seen in the office. I advised her that she can gradually advance her diet from the full liquids into some soft foods over the next few days to a week. She should contact the office for any problems. I will also give her prescriptions for ciprofloxacin and Flagyl for three more days to complete a full 5-6 days of antibiotics after her perforation. TERESA
--- NOTE | 2019-10-23 04:52 | DS.PDOC ---
Discharge Summary General Date of Admission Oct 10, 2019 at 00:21 Date of Discharge 10/13/2019 Attending Physician: YVON LEWIS MD Discharge Summary PROCEDURES PERFORMED DURING STAY: Robotic-assisted laparoscopic omental patch repair of acute gastrojejunal ulcer perforation. ADMITTING DIAGNOSES: 1. Perforated viscus with peritonitis 2. Gastric bypass status. DISCHARGE DIAGNOSES: 1. Perforated acute gastrojejunal ulcer 2. Gastric bypass status. COMPLICATIONS/CHIEF COMPLAINT: Bowel Perforation. HISTORY OF PRESENT ILLNESS: Patient is a 38-year-old female who has a prior history of laparoscopic gastric bypass done in 2014 was in her usual state of health up until about one hour prior to presentation. Earlier during the day patient was reporting some vague right upper quadrant and epigastric discomfort. She 8 the piece of apple and she suddenly had some severe epigastric pain, cold sweats which she initially thought was her dumping from her gastric bypass but the pain progressed and radiation to her mid chest and left shoulder with accompanying shortness of breath and diaphoresis. She was brought to the emergency room at roughly about 7 PM and evaluated there was found to have evidence for perforated viscus with evidence for pneumoperitoneum. This patient reports she was in her usual state of health. No fevers or chills reported. Patient does take regular aspirin. She smokes one half pack per day. She does not normally take any NSAIDs. She has no prior history of ulcers. HOSPITAL COURSE: Patient was brought from the emergency room to the OR for diagnostic laparoscopy. I used the [employer] robot anticipating need for repair of what most likely was an ulcer perforation from her history. She turned out to have a perforation at the jejunal side of her gastrojejunostomy from her gastric bypass. This is repaired with an omental patch repair using the [employer] robot platform. She was hemodynamically stable perioperatively. A David drain was left for monitoring. She remained nothing by mouth up to postop day 2. I that time her leukocytosis has resolved. Her JORDIN drain is just putting out serous fluid. She is hemodynamically stable and is not having any discomfort in the abdomen. She was started on clear liquids and subsequently advanced to soft diet. Her drain output has diminished by postop day 3 or on her day of discharge. This was discontinued prior to her discharge. DISCHARGE MEDICATIONS: Please see below. ALLERGIES: Please see below. PHYSICAL EXAMINATION ON DISCHARGE: VITAL SIGNS: Please see below. Refer to progress note for that day by Dr. Shah DISCHARGE instructions 1. Complete antibiotic course 2. Continue twice a day Protonix and sucralfate 3. Follow-up in 2 weeks 4. Continue soft diet until reevaluate in 2 weeks DISCHARGE CONDITION: Stable. TIME SPENT ON DISCHARGE: Greater than 30 minutes. Discharge Medications Scheduled Captopril (Captopril) 25 Mg Tablet, 25 MG PO BID, (Reported) Ciprofloxacin HCl (Ciprofloxacin HCl) 500 Mg Tablet, 500 MG PO BID Metformin HCl (Metformin HCl) 500 Mg Tablet, 500 MG PO QHS, (Reported) Metronidazole (Metronidazole) 500 Mg Tablet, 1 TAB PO TID Multivitamins (Thera M Plus Tablet) 1 Each Tablet, 1 TAB PO DAILY, (Reported) Pantoprazole Sodium (Pantoprazole Sodium) 40 Mg Tablet.dr, 40 MG PO BID for perforated ulcer Sucralfate (Sucralfate) 1 Gm Tablet, 1 GM PO QID for perforated ulcer tAKE ONE TABLET BY MOUTH 4 TIMES DAILY 30 MINS BEFORE MEALS AND AT BEDTIME Allergies Coded Allergies: Penicillins (Verified Allergy, Intermediate, hives, 10/09/19) YVON LEWIS MD Oct 23, 2019 04:52
== END 2019-10-13 16:45 | disposition home or self-care (01) | DRG 223 ==
LOC: M ED 19:19 → M ED INP 10-10 00:21 → ENRESERVDT 10-10 03:58 → ENRESERVTM 10-10 03:58 → M MS5PR 10-10 04:30
PROVIDERS: ADMIT Surgery; ATTEND Surgery
PROC: 8E0W4CZ Robotic Assisted Procedure of Trunk Region, Percutaneous Endoscopic Approach (ICD-10-PCS; 2019-10-10)
PROC: 0DU947Z Supplement Duodenum with Autologous Tissue Substitute, Percutaneous Endoscopic Approach (ICD-10-PCS; principal; 2019-10-10 12:30)
DX: K28.1 Acute gastrojejunal ulcer with perforation (principal); E11.9 Type 2 diabetes mellitus without complications; F17.210 Nicotine dependence, cigarettes, uncomplicated; Z98.84 Bariatric surgery status; Z79.82 Long term (current) use of aspirin; Z79.84 Long term (current) use of oral hypoglycemic drugs; Z88.0 Allergy status to penicillin; Z79.899 Other long term (current) drug therapy

== ENCOUNTER → 2020-06-05 | Outpatient (CLI) | payer BC ==
[~2020-06-05] MED LIST changes: +ASPI-161 PO; +CAPT1TAB17; +CAPT1TAB17 PO; +CIPR500T3 PO; +METF500T13; +METF500T13 PO; +METR-265 PO; +OMEP40CA97 PO; +PANT40TA29 PO; +SUCR1TA PO; +TRIA37.5 PO; +VITMTA PO
== END ==
LOC: M LABSMTC 11:22
PROVIDERS: ATTEND Anesthesiology
DX: Z11.59 Encounter for screening for other viral diseases (principal)

== ENCOUNTER 2020-06-10 10:34 | Day surgery (SDC) | payer BC ==
[~2020-06-10] VITALS: Ht 170.2 cm; Wt 90.2 kg
[~2020-06-10 10:34] MED LIST changes: +LIDOCAINE 2% 100MG/5ML SDV (FOR ANES.) As Ordered ONE; +NS 1,000 ML IV ONE; -OMEP40CA97 PO; +propofoL 200 MG/20 ML VIAL As Ordered ONE
[2020-06-10] MEDS ORDERED: OMEP40CA97 PO (11:20)
[2020-06-10] MEDS ORDERED: fentaNYL 100 MCG/2 ML INJECTION (J3010) As Ordered ONE (11:21)
--- NOTE | 2020-06-10 11:56 | ROOR ---
Patient Name: Elizabet Ferrari Procedure Date: 06/10/2020 11:29 AM Date of : 1980 Age: 39 Room: [facility] Gender: Female Note Status: Finalized Procedure: Upper GI endoscopy Indications: Epigastric abdominal pain, Status post gastric bypass, follow up of gastrojejunal ulcer perforation Providers: Kwan Salazar MD Referring MD: VANGIE CARMICHAEL MD Requesting Provider: Medicines: Monitored Anesthesia Care Complications: No immediate complications. Procedure: Pre-Anesthesia Assessment: - Prior to the procedure, a History and Physical was performed, and patient medications and allergies were reviewed. The patient is competent. The risks and benefits of the procedure and the sedation options and risks were discussed with the patient. All questions were answered and informed consent was obtained. Patient identification and proposed procedure were verified by the physician, the nurse and the collections rep in the endoscopy suite. Mental Status Examination: alert and oriented. Airway Examination: normal oropharyngeal airway and neck mobility. Respiratory Examination: clear to auscultation. CV Examination: normal. Prophylactic Antibiotics: The patient does not require prophylactic antibiotics. Prior Anticoagulants: The patient has taken no previous anticoagulant or antiplatelet agents. ASA Grade Assessment: II - A patient with mild systemic disease. After reviewing the risks and benefits, the patient was deemed in satisfactory condition to undergo the procedure. The anesthesia plan was to use monitored anesthesia care (MAC). Immediately prior to administration of medications, the patient was re-assessed for adequacy to receive sedatives. The heart rate, respiratory rate, oxygen saturations, blood pressure, adequacy of pulmonary ventilation, and response to care were monitored throughout the procedure. The physical status of the patient was re-assessed after the procedure. The Endoscope was introduced through the mouth, and advanced to the afferent and efferent jejunal loops. The upper GI endoscopy was accomplished without difficulty. The patient tolerated the procedure well. Findings: The examined esophagus was normal. Hematin (altered blood/spogaq-vwcffq-hkmt material) was found in the cardia. Three non-bleeding cratered ulcers with no stigmata of bleeding were found distal to the gastrojejunal anastomosis. The largest lesion was 2 mm in largest dimension. presence of previously placed silk in the lumen of the jejunum, no associated ulceration left at where the silks go through. I tried to remove it with an [place] claw salt cutter but unsuccessful. 2 or 3 linear ulcer and one cratered ulcer opposite where the sutures are, chronic appearance, no bleeding, minimal mucosal inflammation at the g-j anastomosis Impression: - Normal esophagus. - Hematin (altered blood/ipbyss-bfebfy-rkeb material) in the cardia. - Non-bleeding jejunal ulcers with no stigmata of bleeding. - No specimens collected. Recommendation: - Discharge patient to home (ambulatory). - Use Prilosec (omeprazole) 40 mg PO BID for 3 months. - Use sucralfate tablets 1 gram PO BID for 6 weeks. Kwan Salazar MD Kwan Salazar MD 06/10/2020 11:56:05 AM Electronically signed by Kwan Salazar MD Number of Addenda: 0 Note Initiated On: 06/10/2020 11:29 AM Estimated Blood Loss: Estimated blood loss: none.
[2020-06-10 12:10] VITALS: BP 157/89
== END 2020-06-10 12:37 | disposition home or self-care (01) ==
LOC: M OPP 10:34
PROVIDERS: ATTEND Surgery
DX: K92.2 Gastrointestinal hemorrhage, unspecified (principal); K28.9 Gastrojejunal ulcer, unspecified as acute or chronic, without hemorrhage or perforation; Z98.84 Bariatric surgery status; R10.13 Epigastric pain; F17.210 Nicotine dependence, cigarettes, uncomplicated; E11.9 Type 2 diabetes mellitus without complications; I10 Essential (primary) hypertension; Z79.84 Long term (current) use of oral hypoglycemic drugs; Z88.0 Allergy status to penicillin
CPT/HCPCS: 43235; J3010